=== PATIENT | female | born 1970 | race Caucasian/White ===

== ENCOUNTER 2017-02-27 18:26 | Emergency (ER) | payer OTHER ==
[~2017-02-27] VITALS: Ht 162.6 cm; Wt 70.0 kg
[2017-02-27] MEDS ORDERED: ASPIRIN 81 MG TABLET CHEW PO ONE (19:00)
[2017-02-27 19:10] LABS: HEMATOCRIT 44.8 % (34.6-47.8); HEMOGLOBIN 15.6 g/dL (11.7-16.4); WHITE BLOOD COUNT 7.5 x10^3/uL (3.4-10)
[2017-02-27 19:12] LABS: ASPARTATE AMINO TRANSFERASE 18 U/L (15-37); BLOOD UREA NITROGEN 16 mg/dL (7-18)
[2017-02-27 19:16] LABS: IS PT STATUS REG ER OR PRE ER? YES
[2017-02-27 19:46] LABS: RAPID INFLUENZA A Negative (Negative); RAPID INFLUENZA B Negative (Negative)
[2017-02-27] MEDS ORDERED: TEST1.25 EXT (20:43)
[2017-02-27] MEDS ORDERED: PROG100C16 PO (20:44)
[2017-02-27] MEDS ORDERED: ESTR-21 EXT (20:44)
[2017-02-27] MEDS ORDERED: TOPI15CA PO (20:45)
[2017-02-27] MEDS ORDERED: SPIR25TA3 PO (20:45)
[2017-02-27] MEDS ORDERED: BUPR-173 PO (20:45)
[2017-02-27] MEDS ORDERED: ASPIRIN 81 MG TABLET CHEW ONE (20:50)
[2017-02-27 20:53] LABS: HCG UR LOT HCG7030192
[2017-02-27 21:03] LABS: HCG UR OBC PASS
[2017-02-27 21:44] VITALS: BP 91/53
== END 2017-02-27 21:46 | disposition home or self-care (01) ==
LOC: ED 19:56
DX: R07.2 Precordial pain (principal); R07.89 Other chest pain; S39.012A Strain of muscle, fascia and tendon of lower back, initial encounter; X58.XXXA Exposure to other specified factors, initial encounter; Y93.89 Activity, other specified; Y99.8 Other external cause status; Y92.89 Other specified places as the place of occurrence of the external cause
CPT/HCPCS: 36415; 71010; 80053; 81003; 81025; 84484; 85025; 87400; 93005; 99285

== ENCOUNTER 2017-12-21 22:22 | Emergency (ER) | payer OTHER ==
[~2017-12-21] VITALS: Ht 162.6 cm; Wt 72.2 kg
[~2017-12-21 22:22] MED LIST: BUPR-173 PO; ESTR-21 EXT; PROG100C16 PO; SPIR25TA5 PO; TEST1.25 EXT; TOPI15CA PO
[2017-12-21 23:07] LABS: MICROSCOPIC NOT IND
[2017-12-21 23:11] LABS: CULTURE INDICATED? NO
[2017-12-21 23:59] LABS: MEAN CORPUSCULAR HEMOGLOBIN 32.6 pg (27.0-34.8); MEAN CORPUSCULAR HGB CONC 34.7 g/dL (32.4-35.8); MEAN CORPUSCULAR VOLUME 93.8 fL (80-100); MEAN PLATELET VOLUME 7.9 fL (7.4-10.4); PLATELET COUNT 338 x10^3/uL (130-400); RED BLOOD COUNT 4.35 x10^6/uL (3.82-5.3); RED CELL DISTRIBUTION WIDTH 14.2 % (9.6-15.2)
[2017-12-22] LABS: BASOPHILS # (AUTO) 0.03 x10^3/uL (0-0.1); BASOPHILS % (AUTO) 0 % (0-1); EOSINOPHILS # (AUTO) 0.01 x10^3/uL (0-0.4); EOSINOPHILS % (AUTO) 0 % (1-7); LYMPHOCYTES # (AUTO) 3.06 x10^3/uL (1-3.4); LYMPHOCYTES % (AUTO) 35 % (22-44); MD NO; MONOCYTES # (AUTO) 0.87 x10^3/uL (0.2-0.8); MONOCYTES % (AUTO) 10 % (2-9); NEUTROPHILS # (AUTO) 4.79 x10^3/uL (1.8-6.8); NEUTROPHILS % (AUTO) 55 % (42-75)
[2017-12-22 00:13] LABS: ALBUMIN 3.7 g/dL (3.4-5.0); ANION GAP 7 mmol/L (5-15); CALCIUM 8.9 mg/dL (8.5-10.1); CHLORIDE 106 mmol/L (98-107)
[2017-12-22 00:19] LABS: ALANINE AMINOTRANSFERASE 19 U/L (12-78); ALKALINE PHOSPHATASE 91 U/L (45-117); BILIRUBIN,TOTAL 0.2 mg/dL (0.2-1.0); CREATININE 0.89 mg/dL (0.55-1.02); TOTAL PROTEIN 7.3 g/dL (6.4-8.2)
[2017-12-22 01:32] VITALS: BP 115/68
== END 2017-12-22 01:34 | disposition home or self-care (01) ==
LOC: ED 12-22 00:26
DX: K52.1 Toxic gastroenteritis and colitis (principal); E11.9 Type 2 diabetes mellitus without complications; F41.1 Generalized anxiety disorder; F32.9 Major depressive disorder, single episode, unspecified
CPT/HCPCS: 36415; 80053; 81003; 83690; 84703; 85025; 99284